=== PATIENT | male | born 1970 | race Hispanic/Latino ===

== ENCOUNTER 2019-09-25 10:11 | Observation (INO) | payer BC, OTHER ==
[2019-09-25 10:31] LABS: #Basophils 0.1 thou/uL (0.0-0.2); #Eosinphils 0.1 thou/uL (0.0-0.7); #Lymphocytes 2.2 thou/uL (1.20-3.40); #Monocytes 0.3 thou/uL (0.11-0.59); #Neutrophils 3.8 thou/uL (1.40-6.50); %Basophils 0.8 % (0.0-1.0); %Eosinophils 1.1 % (0.0-10.0); %Lymphocytes 33.6 % (21.0-51.0); %Monocytes 5.2 % (0.0-10.0); %Neutrophils 59.3 % (42.0-75.0); Hemoglobin 16.6 g/dL (14.0-18.0); Mean Corpuscular HGB CONC 34.9 g/dL (32.0-36.0); Mean Corpuscular Hemoglobin 31.7 pg (27.0-31.0); Mean Corpuscular Volume 90.9 fL (78.0-98.0); Mean Platelet Volume 7.5 fL (7.4-10.4); Platelet Count 229 thou/uL (130-400); RBC Distribution Width 11.2 % (11.5-14.5); Red Blood Cell (RBC) Count 5.23 mill/uL (4.70-6.10); White Blood Cell (WBC) Count 6.5 thou/uL (4.8-10.8)
[2019-09-25 10:38] LABS: INR-International Normal Ratio 0.9; PTT 27.1 SEC (22.9-36.1); Prothrombin Time 12.2 SEC (12.0-14.7)
--- NOTE | 2019-09-25 10:40 | CT ---
"PRELIMINARY REPORT" EXAM: CT chest, abdomen, and pelvis with IV contrast: HISTORY: COMPARISON: None FINDINGS: CT THORAX: Lungs: No consolidation, suspicious pulmonary nodule, or mass. Pleura: No pleural effusion. Lymph nodes: No lymphadenopathy. Mediastinum: No acute process of the mediastinal structures. Chest wall: No abnormalities CT ABDOMEN AND PELVIS: Liver: Within normal limits. Gallbladder: Within normal limits. \\ Pancreas: Within normal limits. Spleen: Within normal limits. Adrenal glands: Within normal limits. Kidneys: Within normal limits. Urinary Bladder: The urinary bladder is unremarkable. Reproductive organs: Within normal limits for patient's age. Bowel: Normal in caliber. Adenopathy:No lymphadenopathy within the abdomen or pelvis. Peritoneum: No free fluid or fluid collection is seen. No free intraperitoneal gas is identified. Abdominal wall: No abnormalities seen. Osseous structures: No acute osseous abnormalities. IMPRESSION:
[2019-09-25] MEDS ORDERED: Activated Charcoal/Sorbitol 25 GM/120 ML TUBE ONE (10:53)
[2019-09-25] MEDS ORDERED: Adacel (T-DAP) 0.5 ML SYRINGE ONE (10:53)
[2019-09-25] MEDS ORDERED: Ketorolac Tromethamine 30 MG/ML VIAL ONE (10:54)
[2019-09-25 10:57] LABS: ALT (SGPT) 76 U/L (8-55); AST (SGOT) 34 U/L (5-34); Albumin 4.5 g/dL (3.5-5.0); Alkaline Phosphatase 110 U/L (40-110); Anion Gap 13 mmol/L (10-20); BUN (Urea Nitrogen) 12 mg/dL (8.4-25.7); Bilirubin, Total 0.5 mg/dL (0.2-1.2); Calc. Creatinine Clearance 0 mL/min (70-130); Calcium 9.4 mg/dL (7.8-10.44); Carbon Dioxide 24 mmol/L (22-29); Chloride 102 mmol/L (98-107); Estimated GFR-MDRD 60; Globulin 2.9 g/dL (2.4-3.5); Glucose 255 mg/dL (70-105); Potassium 4.1 mmol/L (3.5-5.1); Protein, Total 7.4 g/dL (6.0-8.3); Sodium 135 mmol/L (136-145)
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
[2019-09-25] MEDS ORDERED: Dextrose 5% in Water 1,000 ML IV PRN ×2 (11:42→21:57)
[2019-09-25] MEDS ORDERED: Promethazine HCl 25 MG/ML VIAL IM PRN ×2 (11:42→22:01)
[2019-09-25] MEDS ORDERED: Dextrose 50% Abboject 50 ML SYRINGE SLOW IVP PRN ×2 (11:42→21:58)
[2019-09-25] MEDS ORDERED: Ondansetron PF 4 MG/2 ML Vial IVP PRN ×2 (11:42→22:00)
[2019-09-25] MEDS ORDERED: HumaLOG 300 UNITS/3 ML VIAL SC PRN ×2 (11:42→21:57)
[2019-09-25] MEDS ORDERED: Sodium Chloride 0.9% 1,000 ML IV SCH ×2 (11:45→14:22)
[2019-09-25] MEDS ORDERED: ISOVUE-370 76%-LOCM 1 ML ONE (12:00)
[2019-09-25] MEDS ORDERED: Acetaminophen 325 MG TAB PO SCH (12:00)
[2019-09-25] MEDS ORDERED: hydrALAZINE 20 MG/ML VIAL SLOW IVP PRN ×2 (12:03→21:59)
[2019-09-25] MEDS ORDERED: Labetalol HCl 100 MG/20 ML VIAL SLOW IVP PRN ×2 (12:04→22:00)
[2019-09-25 12:40] LABS: Hemoglobin A1c 10.6 % (4.0-6.0)
[2019-09-25 12:42] LABS: INR-International Normal Ratio 0.9; Magnesium 1.8 mg/dL (1.6-2.6); PTT 27.1 SEC (22.9-36.1); Prothrombin Time 12.3 SEC (12.0-14.7)
[2019-09-25 12:53] LABS: Phosphorus 1.5 mg/dL (2.3-4.7)
[2019-09-25] MEDS ORDERED: Diazepam 5 MG TAB PO PRN (14:23)
--- NOTE | 2019-09-25 15:18 | PDOC.EVN ---
Event Note - Event Note Event Note: Patient seen and examined. Please see Rubén ROSE H&P for details. Answers questions but still confused. Obs tonight. Head CT negative
[2019-09-25] MEDS ORDERED: Acetaminophen 1,000 MG in Premix Bag 1 BAG IVPB PRN (15:34)
[2019-09-25] MEDS: Ibuprofen 800 MG TAB PO PRN (16:12)
--- NOTE | 2019-09-25 17:21 | CT ---
EXAM: CT brain without contrast HISTORY: Headache after head trauma COMPARISON: 09/25/2019 TECHNIQUE: Multiple contiguous axial images were obtained and a CT of the brain without contrast. FINDINGS: The brain is normal in morphology and attenuation without focal lesions or confluent areas of infarction. There is no evidence of hydrocephalus, intracranial hemorrhage, or extra-axial fluid collection. The calvarium and overlying soft tissues are unremarkable. The visualized paranasal sinuses and masto id air cells are well aerated. IMPRESSION: No evidence of acute intracranial abnormality
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
[2019-09-25] MEDS ORDERED: PHOS-NAK 1 PKT PACK PO SCH (18:15)
[2019-09-25] MEDS: Acetaminophen 500 MG TAB PO PRN (18:20)
[2019-09-25] MEDS ORDERED: Famotidine 20 MG TAB PO SCH (21:00)
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
[2019-09-26] MEDS: Acetaminophen 500 MG TAB PO PRN (03:41)
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
[2019-09-26] MEDS: Ibuprofen 800 MG TAB PO PRN (08:48)
[2019-09-26] MEDS ORDERED: Famotidine 20 MG TAB PO SCH (09:00)
[2019-09-26] MEDS ORDERED: TETANUS AND DIPHTHERIA TOX/PF 0.5 ML DISP.SYRIN IM ONE (09:00)
[2019-09-26] MEDS ORDERED: Lisinopril 2.5 MG TAB PO SCH (09:00)
[2019-09-26] MEDS ORDERED: Cyclobenzaprine 10 MG TAB PO PRN (09:33)
[2019-09-26] MEDS ORDERED: Ibuprofen 800 MG TAB PO SCH (10:15)
[2019-09-26] MEDS ORDERED: Acetaminophen 500 MG TAB PO SCH (10:15)
[2019-09-26 11:15] VITALS: BP 143/89; TEMP 98
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
== END 2019-09-26 14:34 | disposition home or self-care (01) ==
LOC: ERS 10:11 → SURG A 11:42 → ERS 13:45
PROVIDERS: ADMIT Surgery; ATTEND Surgery
DX: S06.0X0A Concussion without loss of consciousness, initial encounter (principal); I10 Essential (primary) hypertension; E11.65 Type 2 diabetes mellitus with hyperglycemia; E87.1 Hypo-osmolality and hyponatremia; Z79.84 Long term (current) use of oral hypoglycemic drugs; Z79.899 Other long term (current) drug therapy; V84.5XXA Driver of special agricultural vehicle injured in nontraffic accident, initial encounter
CPT/HCPCS: 36415; 36416; 70450; 71260; 72125; 74177; 80053; 83036; 83735; 84100; 85025; 85610; 85730; 90471; 90714; 90715; 93005; 96361; 96374; G0378; G0390; J1885; Q9966